=== PATIENT | female | born 1960 | race Caucasian/White ===

== ENCOUNTER 2020-02-11 14:04 | Emergency (ER) | payer BC ==
[~2020-02-11] VITALS: Ht 172.7 cm; Wt 74.8 kg
[~2020-02-11 14:04] MED LIST: SYNTHROID PO
--- OUTSIDE RECORDS SUMMARY | 2020-02-11 14:06 | XMS REPORT | Clinical Summary ---
Author Author [facility] Address Unknown Phone Unavailable Care Team Providers Care [place] Worker Name Role Phone Asked, No Pcp PCP Unavailable Allergies No Known Allergies Medications Not on file Active Problems Not on file Encounters Care Team Description Date Type Specialty Elijah Bahena, DO 01/28/2020 Emergency Emergency Medicine after 02/10/2019 Social History Date Tobacco Use Types Packs/Day Years Used Never Assessed Sex Assigned at Date Recorded Not on file Industry Job Start Date Occupation Not on file Not on file Not on file Travel End Travel History Travel Start No recent travel history available. Last Filed Vital Signs Reading Time Taken Comments Vital Sign 168/97 01/28/2020 9:00 AM CDT Blood Pressure 85 01/28/2020 9:00 AM CDT Pulse 36.8 C (98.3 F) 01/28/2020 9:00 AM CDT Temperature 18 01/28/2020 9:00 AM CDT Respiratory Rate 97% 01/28/2020 9:00 AM CDT Oxygen Saturation - - Inhaled Oxygen Concentration - - Weight 170.2 cm (5' 7") 01/28/2020 8:57 AM CDT Height - - Body Mass Index Plan of Treatment Not on file Results Not on fileafter 02/10/2019 Advance Directives For more information, please contact: [phone] Patient Cumulative Effects Analyst Explanation Type Date Recorded PT LEFT WITHOUT BEING SEEN; UNABLE TO REGISTER DUE TO LWBS Advance Directives, 01/28/2020 9:19 AM Living Will and Medical Power of 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
--- OUTSIDE RECORDS SUMMARY | 2020-02-11 14:07 | XMS REPORT ---
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 Allergies, Adverse Reactions, Alerts This patient has no known allergies or adverse reactions. Medications This patient has no known medications. Results Test Description Test Time Test Comments Text Results Atomic Results Result Comments Mammo Digital Mammography Screening 2019-02-03 15:34:55 CLINICAL INDICATION: Z12.31 Encntr screen mammogram for malignant neoplasm of breastTECHNIQUE: Digital acquisition of the breasts is performed on the Siemens Mammomat Inspiration mammography unit. Computer Assisted Detection (CAD) is then accomplished using [employer]2 [employer]. FINDINGS:COMPARISON STUDY: February 2018, February 2017, february 1016There are scattered fibroglandular tissues in both breasts.No dominant mass, skin thickening, architectural distortion or suspicious microcalcifications are noted. IMPRESSION:Benign bilateral mammogram. Negative.RECOMMENDATION: Routine annual screening mammography per ACR guidelines.Category: BIRADS 2 - Benign. For internal use only. N:12 Mammo Digital Mammography Screening CLINICAL INDICATION: Z12.31 Encntr screen mammogram for malignant neoplasm of breastTECHNIQUE: Digital acquisition of the breasts is performed on the Siemens Mammomat Inspiration mammography unit. Computer Assisted Detection (CAD) is then accomplished using [employer]. FINDINGS:COMPARISON STUDY: February 12, 2017, February 2016, March 2015There are scattered fibroglandular tissues in both breasts.No dominant mass, skin thickening, architectural distortion or suspicious microcalcifications are noted. IMPRESSION:Benign bilateral mammogram. Negative.RECOMMENDATION: Routine annual screening mammography per ACR guidelines.Category: BIRADS 2 - Benign. For internal use only. N:12 MRI KNEE JNT LT WO CONTRAST CLIN ICAL INDICATION: M25.562 Pain in left kneeMODALITY: [employer] [place] 1.2 [place] Open MRITECHNIQUE: Multiplanar multisequence MRI of the left knee was performed .IMPRESSION:1. Moderate tricompartmental osteoarthritis, most pronounced within the patellofemoral compartment.2. Small joint effusion.3. Popliteal cyst.4. Loose body.FINDINGS:COMPARISON: none MENISCI: Medial and lateral menisci are intact.CRUCIATE LIGAMENTS: Anterior and posterior cruciate ligaments are intact.COLLATERAL LIGAMENTS: Medial and lateral collateral ligaments are intact.OSSEOUS STRUCTURES AND CARTILAGINOUS SURFACES: No fractures or destructive osseous lesions are seen. Mild lateral osteophytosis is present. 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 Grade 2 chondromalacia involves corresponding medial articular surface of the lateral femoral condyle. Grade 3 chondromalacia involves central weightbearing surface of medial femoral condyle.PATELLOFEMORAL COMPARTMENT: Patellofemoral alignment is normal. Full-thickness cartilage loss is present at the mid patellar apex and lateral patellar facet. Grade 2 to 3 chondromalacia involves the mid trochlear groove.MISCELLANEOUS FINDINGS: 16 mm diameter ovoid osseous loose body is seen adjacent to the posterior margin of of the mid posterior cruciate ligament. Small joint effusion is present. Popliteal cyst is present, measuring 2.5 cm in axial diameter and 4.5 cm in craniocaudal dimension.
[2020-02-11] MEDS ORDERED: SODIUM CHLORIDE 0.9% 1000ML 1,000 ML IV STA (14:10)
--- NOTE | 2020-02-11 14:50 | Diagnostic Imaging Report ---
Examination: CT BRAIN WO CONTRAST History:Left-sided weakness. Comparison studies:None Technique: Axial images were obtained from the skull base to the vertex. Coronal and sagittal images reconstructed from the axial data. Dose modulation, iterative reconstruction, and/or weight based adjustment of the mA/kV was utilized to reduce the radiation dose to as low as reasonably achievable. Intravenous contrast: None Findings: Scalp: No abnormalities. Bones: No fractures, blastic or lytic lesions. Brain sulci: Appropriate for age. Ventricles: Normal in size and configuration. No hydrocephalus. Extra-axial space: There is a right parietal convexity subdural hematoma with maximal thickness of 1.6 cm with regional mass effect upon the right pre and postcentral gyri. However, no midline shift or herniation. Parenchyma: There are subtle patchy areas of hypoattenuation in the periventricular and subcortical white matter, nonspecific . No masses, hemorrhage, or acute or chronic cortical based vascular insults.. Sellar/suprasellar region: No abnormalities. Craniocervical junction: Patent foramen magnum. No Chiari one malformation. Incidental findings: None. Impression: Subacute right parietal convexity subdural hematoma with regional mass effect upon the right pre and postcentral gyri. No midline shift or herniation. Mild chronic microvascular ischemic change. Dr. Fartun Patel discussed subdural findings with Dr. Quinn on 02/11/[address] Quinn was already aware of the findings as patient had recent MRI with these findings. Signed by: Dr. Fartun Patel M.D. on 02/11/2020 2:47 PM
--- NOTE | 2020-02-11 14:50 | NUR ---
[facility] CALLED FOR TRANSFER.
[2020-02-11] MEDS ORDERED: MORPHINE SULFATE INJ 4 MG/ML INJ 1ML IV STA (14:59)
[2020-02-11] MEDS ORDERED: ONDANSETRON HCL INJ 2MG/ML 2ML 2 MG/ML VIAL IV STA ×2 (15:00→15:24)
--- NOTE | 2020-02-11 15:17 | Diagnostic Imaging Report ---
EXAMINATION: CHEST 2 VIEWS INDICATION: Headache COMPARISON: None FINDINGS: LINES/TUBES:None LUNGS:The lungs are well-inflated. No focal consolidation or pulmonary edema. PLEURA:No pleural effusion or pneumothorax. MEDIASTINUM:The cardiomediastinal silhouette appears normal in size and shape. BONES/SOFT TISSUES:No acute osseous injury. ABDOMEN:No free air under the diaphragm. IMPRESSION: No focal pneumonia or pulmonary edema. Signed by: Lionel Durand MD on 02/11/2020 3:14 PM
[2020-02-11 15:20] LABS: BASOPHILS % 0.3 % (0.0-1.0); EOSINOPHILS % 0.3 % (0.0-6.0); HEMATOCRIT 37.9 % (34.2-44.1); HEMOGLOBIN 12.3 g/dL (12.0-16.0); LYMPHOCYTES # (AUTO) 0.9 (1.0-3.2); LYMPHOCYTES % 11.1 % (18.0-39.1); MEAN CORPUSCULAR HGB CONC 32.5 g/dL (31-35); MEAN CORPUSCULAR VOLUME 89.4 fL (81-99); MONOCYTES # (AUTO) 0.4 (0.2-0.8); MONOCYTES % 5.2 % (4.4-11.3); NEUTROPHILS # (AUTO) 6.5 (2.1-6.9); NEUTROPHILS % 82.6 % (38.7-80.0); PLATELET COUNT 349 x10e3/uL (140-360); RED BLOOD COUNT 4.24 x10e6/uL (3.6-5.1); RED CELL DISTRIBUTION WIDTH 13.2 % (11.7-14.4)
[2020-02-11] MEDS ORDERED: HYDROCODONE/APAP 7.5MG-325MG 1 EA TAB PO PRN (15:30)
[2020-02-11 15:34] LABS: ALANINE AMINOTRANSFERASE 12 IU/L (0-55); ALBUMIN 4.2 g/dL (3.5-5.0); ALBUMIN/GLOBULIN RATIO 1.5 (0.8-2.0); ALKALINE PHOSPHATASE 67 IU/L (40-150); ANION GAP 13.6 mmol/L (8-16); BLOOD UREA NITROGEN 17 mg/dL (7-26); BUN/CREATININE RATIO 22 (6-25); CALCIUM 9.3 mg/dL (8.4-10.2); CARBON DIOXIDE 27 mmol/L (22-29); CHLORIDE 106 mmol/L (98-107); CREATINE KINASE 38 IU/L (29-168); CREATININE, SERUM 0.77 mg/dL (0.57-1.11); EST GLOMERULAR FILTRATION RATE > 60 ML/MIN (60-); GLUCOSE 105 mg/dL (74-118); POTASSIUM 3.6 mmol/L (3.5-5.1); SODIUM 143 mmol/L (136-145)
--- NOTE | 2020-02-11 16:18 | NUR ---
CALLED [phone], MALE ANSWERED AND IMMEDIATELY STATED WHO WE WERE AND PT NAME AND SAID HE HAD JUST BEEN TALKING TO NEURO SURGERY REGARDING PT. I EXPLAINED I WAS CALLING TO GIVE REPORT AND WAS PLACED ON HOLD 4MINS 32 SECONDS
--- NOTE | 2020-02-11 16:39 | NUR ---
CALLED [phone] FOR REPORT ESTEFANY TORIBIO
[2020-02-11] MEDS ORDERED: PREDNISONE20 MG (16:44)
[2020-02-11] MEDS ORDERED: ESIDRIX25 MG (16:44)
[2020-02-11] MEDS ORDERED: LOSARTAN POTASS50 MG (16:44)
[2020-02-11] MEDS ORDERED: SYNTHROID200 MCG (16:44)
== END 2020-02-11 16:15 | disposition short-term general hospital (02) ==
LOC: ER 14:04
DX: R20.2 Paresthesia of skin (principal); R42 Dizziness and giddiness; R51 Headache; S06.5X0A Traumatic subdural hemorrhage without loss of consciousness, initial encounter
CPT/HCPCS: 36415; 70450; 71046; 80053; 82550; 82553; 83880; 84484; 85025; 93005; 99284; J2270; J2405; J7030

== ENCOUNTER → 2025-05-17 | Outpatient (REF) | payer MEDICARE ==
[~2025-05-17] MED LIST changes: +ESIDRIX25 MG; +LOSARTAN POTASS50 MG; +PREDNISONE20 MG; +SYNTHROID200 MCG
== END ==
LOC: DX 09:49
PROVIDERS: ATTEND Internal Medicine
DX: M85.88 Other specified disorders of bone density and structure, other site (principal)
CPT/HCPCS: 77080